=== PATIENT | female | born 1985 | race African-American/Black ===

== ENCOUNTER 2017-04-02 05:41 | Day surgery (SDC) | payer OTHER ==
[~2017-04-02] VITALS: Ht 167.6 cm; Wt 71.7 kg
[2017-04-02 06:04] VITALS: BP 139/81
[2017-04-02 11:46] VITALS: BP 125/87
== END 2017-04-02 11:45 | disposition home or self-care (01) ==
LOC: DS 05:41 → OR 07:30 → DS 11:45
PROVIDERS: Surgery
PROC: 8E0W4CZ Robotic Assisted Procedure of Trunk Region, Percutaneous Endoscopic Approach (ICD-10-PCS; 2017-04-02)
PROC: 0FT44ZZ Resection of Gallbladder, Percutaneous Endoscopic Approach (ICD-10-PCS; principal; 2017-04-02 07:30)
DX: K80.10 Calculus of gallbladder with chronic cholecystitis without obstruction (principal); J45.909 Unspecified asthma, uncomplicated; Z98.51 Tubal ligation status
CPT/HCPCS: 47562; S2900; J0330; J0690; J2175; J2250; J2405; J2704; J2710; J3010; J3490; J7120